=== PATIENT | male | born 1975 | race Native Hawaiian/Other Pacific Islander ===

== ENCOUNTER 2021-11-09 10:22 | Emergency (ER) | payer OTHER ==
[~2021-11-09] VITALS: Ht 190.5 cm; Wt 154.2 kg
[2021-11-09 10:35] VITALS: BP 159/86; TEMP 98
== END 2021-11-09 14:36 | disposition home or self-care (01) ==
LOC: ED 10:22
PROC: 0HC7XZZ Extirpation of Matter from Abdomen Skin, External Approach (ICD-10-PCS; principal; 2021-11-09)
PROC: 0HQ7XZZ Repair Abdomen Skin, External Approach (ICD-10-PCS; 2021-11-09)
DX: S31.123A Laceration of abdominal wall with foreign body, right lower quadrant without penetration into peritoneal cavity, initial encounter (principal); W45.8XXA Other foreign body or object entering through skin, initial encounter; Y92.89 Other specified places as the place of occurrence of the external cause
CPT/HCPCS: 90471; 90715; 99283

== ENCOUNTER 2021-11-17 13:12 | Emergency (ER) | payer OTHER ==
[~2021-11-17] VITALS: Ht 190.5 cm; Wt 154.2 kg
[2021-11-17 13:15] VITALS: BP 165/82; TEMP 98
== END 2021-11-17 13:35 | disposition home or self-care (01) ==
LOC: ED 13:12
DX: Z48.02 Encounter for removal of sutures (principal)

== ENCOUNTER 2021-11-22 09:04 | Outpatient (CLI) | payer OTHER | END 2021-11-22 18:45 | disposition home or self-care (01) | LOC: RAD 09:04 | PROVIDERS: ATTEND Nurse Practitioner Family | DX: H16.223 Keratoconjunctivitis sicca, not specified as Sjogren's, bilateral (principal); M06.4 Inflammatory polyarthropathy; M25.561 Pain in right knee; M25.562 Pain in left knee; Z68.41 Body mass index [BMI] 40.0-44.9, adult ==